=== PATIENT | male | born 1990 | race Caucasian/White ===

== ENCOUNTER 2023-06-30 14:47 | Emergency (ER) | payer OTHER, SELFPAY ==
[2023-06-30 14:51] VITALS: BP 124/77; PULSE 66; RESP 16; TEMP 36.9; O2SAT 100; BMI 32.5
[2023-06-30 15:46] LABS: Add Manual Diff / Slide Review NO; Basophils Absolute Auto 0 /uL (0-100); Basophils Percent Auto 0.6 % (0-2); Eosinophils Absolute Auto 100 /uL (0-450); Eosinophils Percent Auto 1.4 % (2-4); Hematocrit 39.9 % (41-53); Hemoglobin 13.6 g/dL (13.5-17.5); Lymphocytes Absolute Auto 2000 /uL (1100-4500); Lymphocytes Percent Auto 29.6 % (25-40); Mean Corpuscular HGB Conc 34.1 % (30-36); Mean Corpuscular Hemoglobin 30.9 PG (26-34); Mean Corpuscular Volume 90.5 fL (80-100); Monocytes Absolute Auto 700 /uL (0-900); Monocytes Percent Auto 11.2 % (3-14); Neutrophils Absolute Auto 3800 /uL (1500-7000); Neutrophils Percent Auto 57.2 % (50-75); Platelet Count 306 X10^3/uL (150-400); Red Blood Cell Count 4.41 X10^6/uL (4.5-5.9); Red Cell Distribution Width 12.7 % (11.6-14.8); White Blood Cell Count 6.6 X10^3/uL (4.5-11.0)
[2023-06-30 15:52] LABS: Alanine Aminotransferase 22 IU/L (<50); Albumin 4.5 g/dL (3.5-5.0); Albumin Globulin Ratio 1.4 (1.0-2.8); Alkaline Phosphatase 81 U/L (38-126); Aspartate Aminotransferase 32 IU/L (17-59); BUN Creatinine Ratio 13.8 (6-22); Bilirubin Total 0.7 mg/dL (0.2-1.3); Blood Urea Nitrogen 11 mg/dL (9-20); Calcium 8.9 mg/dL (8.4-10.2); Carbon Dioxide 25 mmol/L (22-32); Chloride 106 mmol/L (98-107); Estimated Glomerular Filt Rate > 60 mL/min (>60); Globulin 3.3 g/dL (1.7-4.1); Glucose 94 mg/dL (70-100); HEMOLYSIS 26 (0-50); Lipase 55 U/L (23-300); Sodium 140 mmol/L (137-145); Total Protein 7.8 g/dL (6.3-8.2)
--- NOTE | 2023-06-30 16:42 | ED.ABDPAIN ---
HPI - Abdominal Pain <Edwina Grover PA-C - Last Filed: 06/30/23 19:37> General Chief Complaint: Abdominal Pain Stated Complaint: NVD, Bloody stool Time Seen by Provider: 06/30/23 16:41 Source: patient Mode of arrival: Ambulatory History of Present Illness HPI narrative: 33-year-old male presents with multiple concerns. Patient states he has been dealing with watery stools multiple times a day since Tuesday. On Tuesday night he had blood on his stool that was bright red. This resolved but Tuesday morning he said he was having vomiting and diarrhea at the same time. All day Tuesday he had dry heaving and vomiting and continued to have some watery stools. He says as of yesterday he started to get gradually better but was still not feeling great and then today when he went into work they told him to get seen at the clinic, he went to the clinic on [facility] and they told him he should come to the ER to get evaluated for appendicitis as he has been having some right low abdominal pain throughout this window. Patient did state he was concerned he may have done something to himself at work on last week he had a tool attached to his belt at work and was leaning forward and it was pressing into his belly for about 15 minutes he noticed he had a little bit of a bruise over his abdomen at this location. He does not remember eating anything suspect before his symptoms started on Tuesday. He states that he has had hemorrhoids in the past with blood in his stool but it has been some time. In the past this was painful but he was not having pain on Tuesday. He denies dizziness lightheadedness persistent vomiting, is still having loose watery stools today but not since this morning. Denies cough congestion fevers chills or other. Related Data Home Medications Medication Instructions Recorded Confirmed fluoxetine 20 mg capsule (Prozac) 20 mg PO DAILY 06/30/23 06/30/23 Allergies Allergy/AdvReac Type Severity Reaction Status Date / Time pollen Allergy Mild Uncoded 06/30/23 09:16 cats AdvReac Uncoded 06/30/23 09:16 Review of Systems <Edwina Grover PA-C - Last Filed: 06/30/23 19:37> Review of Systems Narrative: See HPI Patient History <Edwina Grover PA-C - Last Filed: 06/30/23 19:37> Social History Smoking Status: Former smoker Smoking Status: Former smoker Substance Use Type: marijuana Exam <Edwina Grover PA-C - Last Filed: 06/30/23 19:37> Narrative Exam Narrative: GENERAL: 33 year old patient appears stated age. Well-developed patient, in mild distress. HEAD: Atraumatic. Normocephalic. EYES: Pupils equal round and reactive. Extraocular motions intact. No scleral icterus. No injection or drainage. ENT: Nose without bleeding, purulent drainage. Throat without erythema, tonsillar hypertrophy or exudate. Airway patent. NECK: Trachea midline. Non tender CARDIOVASCULAR: Regular rate and rhythm without murmurs, gallops, or rubs. RESPIRATORY: Clear to auscultation. Breath sounds equal bilaterally. No wheezes, rales, or rhonchi. GASTROINTESTINAL: Abdomen soft, there is suprapubic tenderness left lower quadrant tenderness and right lower quadrant tenderness over McBurney's point. Abdomen is otherwise Non-tender, nondistended. EXTREMITIES: No edema or joint tenderness. BACK: Nontender without deformity or crepitance. No flank tenderness. NEURO: AOx3. SKIN: No rash or erythema of visible areas Initial Vital Signs Initial Vital Signs: Vital Signs Temperature 98.4 F 06/30/23 14:51 Pulse Rate 66 06/30/23 14:51 Respiratory Rate 16 06/30/23 14:51 Blood Pressure 124/77 06/30/23 14:51 Pulse Oximetry 100 06/30/23 14:51 Oxygen Delivery Method Room Air 06/30/23 14:51 <Nicky Ayala DO - Last Filed: 07/01/23 07:21> Initial Vital Signs Initial Vital Signs: Vital Signs Temperature 98.4 F 06/30/23 14:51 Pulse Rate 66 06/30/23 14:51 Respiratory Rate 16 06/30/23 14:51 Blood Pressure 124/77 06/30/23 14:51 Pulse Oximetry 100 06/30/23 14:51 Oxygen Delivery Method Room Air 06/30/23 14:51 Course <Edwina Grover PA-C - Last Filed: 06/30/23 19:37> Orders Ordered: Discontinued Medications Ondansetron HCl (Ondansetron 4 Mg Odt) 4 mg PO NOW PRN PRN Reason: Nausea And Vomiting Ondansetron HCl (Ondansetron 4 Mg/2 Ml Inj) 4 mg IV NOW PRN PRN Reason: Nausea And Vomiting Vital Signs Vital signs: Vital Signs - 8 hr 06/30/23 14:51 06/30/23 18:05 Temperature 98.4 F Pulse Rate 66 65 Respiratory Rate 16 18 Blood Pressure 124/77 129/67 Pulse Oximetry 100 100 Oxygen Delivery Method Room Air Room Air <Nicky Ayala DO - Last Filed: 07/01/23 07:21> Orders Ordered: Discontinued Medications Ondansetron HCl (Ondansetron 4 Mg Odt) 4 mg PO NOW PRN PRN Reason: Nausea And Vomiting Ondansetron HCl (Ondansetron 4 Mg/2 Ml Inj) 4 mg IV NOW PRN PRN Reason: Nausea And Vomiting Vital Signs Vital signs: Vital Signs - 8 hr 06/30/23 14:51 06/30/23 18:05 Temperature 98.4 F Pulse Rate 66 65 Respiratory Rate 16 18 Blood Pressure 124/77 129/67 Pulse Oximetry 100 100 Oxygen Delivery Method Room Air Room Air MDM - Abdominal Pain <Edwina Grover PA-C - Last Filed: 06/30/23 19:37> Differential Diagnosis Differential diagnosis: Likely abdominal pain, acute appendicitis, diverticulitis, gastroenteritis, small bowel obstruction and other (Viral gastroenteritis) Medical Records Attestation: I reviewed the patient's medical records. Lab Data Attestation: I reviewed the patient's lab results. 06/30/23 15:29 06/30/23 15:29 Labs: Lab Results 06/30/23 Range/Units 15:29 WBC 6.6 (4.5-11.0) X10^3/uL RBC 4.41 L (4.5-5.9) X10^6/uL Hgb 13.6 (13.5-17.5) g/dL Hct 39.9 L (41-53) % MCV 90.5 (80-100) fL MCH 30.9 (26-34) PG MCHC 34.1 (30-36) % RDW 12.7 (11.6-14.8) % Plt Count 306 (150-400) X10^3/uL Neut % (Auto) 57.2 (50-75) % Lymph % (Auto) 29.6 (25-40) % [place] % (Auto) 11.2 (3-14) % Eos % (Auto) 1.4 L (2-4) % Baso % (Auto) 0.6 (0-2) % Neut # (Auto) 3800 (1165-9771) /uL Lymph # (Auto) 2000 (0656-9976) /uL [place] # (Auto) 700 (0-900) /uL Eos # (Auto) 100 (0-450) /uL Baso # (Auto) 0 (0-100) /uL Sodium 140 (137-145) mmol/L Potassium 4.0 (3.4-5.1) mmol/L Chloride 106 (98-107) mmol/L Carbon Dioxide 25 (22-32) mmol/L BUN 11 (9-20) mg/dL Creatinine 0.80 (0.66-1.25) mg/dL Estimated GFR > 60 (>60) mL/min BUN/Creatinine Ratio 13.8 (6-22) Glucose 94 (70-100) mg/dL Calcium 8.9 (8.4-10.2) mg/dL Total Bilirubin 0.7 (0.2-1.3) mg/dL AST 32 (17-59) IU/L ALT 22 (<50) IU/L Alkaline Phosphatase 81 (38-126) U/L Total Protein 7.8 (6.3-8.2) g/dL Albumin 4.5 (3.5-5.0) g/dL Globulin 3.3 (1.7-4.1) g/dL Albumin/Globulin Ratio 1.4 (1.0-2.8) Lipase 55 (23-300) U/L Point of care testing: Urine Dip Bedside Urine Glucose Negative Bedside Urine Bilirubin - Negative Bedside Urine Ketone +/- 5 Urine Specific Reading 1.015 Bedside Urine Occult Blood - Negative Bedside Urine pH 6.0 Bedside Urine Protein - Negative Bedside Urine Urobilinogen - Negative Bedside Urine Nitrite - Negative Bedside Urine Leukocytes - Negative Esterase Imaging Data CT scan - abdomen/pelvis: My Impression: Agree with Radiology interpretation Radiologist's Impression: [address] [address] [address] Scan Report Signed Patient: Chris Sanders MR#: [id number] : 1990 Acct:[id number] Age/Sex: 33 / M Date of Service: 06/30/23 Loc: ED Accession Number: [id number] Procedure: CT abdomen pelvis w con Ordering Provider: Edwina Grover P.A-C PROCEDURE: CT ABDOMEN PELVIS W CON INDICATIONS: Eval for appendicitis vs diverticulitis TECHNIQUE: After the administration of intravenous contrast, axial sections acquired from the lung bases to the pubic symphysis. Coronal and sagittal reformats were performed. For radiation dose reduction, the following was used: automated exposure control, adjustment of mA and/or kV according to patient size. COMPARISON: None. FINDINGS: Image quality: Diagnostic. Lower Chest: No significant findings. ABDOMEN: Liver: No solid mass. Gallbladder: No radiopaque gallstones or wall thickening. Biliary ducts: No biliary dilation. Pancreas: No ductal dilation. Spleen: Size is within normal limits. Adrenal Glands: No adrenal nodules. Kidneys and Ureters: No hydronephrosis. No solid mass. No complex renal cystic lesion which requires follow up. Stomach and Bowel: There is no bowel obstruction. No gastric or small bowel wall thickening. Appendix is visualized in right lower quadrant and is normal in size and appearance. There is suggestion of diffuse colonic wall thickening and edema with very mild pericolonic fat stranding. No significant sigmoid diverticulosis or CT evidence of acute diverticulitis. No abscess collection. Peritoneum: No abnormal intraperitoneal fluid. No free air. Ventral Wall: No significant ventral hernia. Abdominal Nodes: No retroperitoneal or mesenteric adenopathy by size criteria. Vessels: Aorta and inferior vena cava are normal in size. PELVIS: Pelvic Organs: Unremarkable. Bladder: No bladder wall thickening, accounting for underdistention. Pelvic Nodes: No enlarged lymph nodes. Miscellaneous: No inguinal hernias are seen. Bones: No aggressive osseous abnormality. IMPRESSION: 1. Diffuse colonic wall thickening concerning for infectious or inflammatory colitis. 2. No significant sigmoid diverticulosis or CT evidence of acute diverticulitis. Normal appendix. No bowel obstruction. No free fluid or free air. Dictated by: Dinh Barone M.D. on 06/30/2023 at 17:16 Approved by: Dinh Barone M.D. on 06/30/2023 at 17:19 [facility] Narrative Medical decision making narrative: 33-year-old male presents with concern for multiple days of loose watery stools with vomiting and dry heaving and also with report of blood on his stool on Tuesday night. Patient is fairly well-appearing today and states he thinks he is on the mend but was sent in by clinic for further evaluation from [facility]. Given patient has been having some right lower quadrant abdominal pain and does have some tenderness there today on exam in the setting of recent frequent nausea vomiting and diarrhea do obtain a CT scan for further evaluation. This returns consistent with inflammatory versus infectious colitis. I suspect patient likely has had a viral illness causing his symptoms. His labs are otherwise unremarkable with no evidence of UTI, no leukocytosis, liver enzymes unremarkable and lipase also unremarkable. Discussed results with the patient, he did receive fluids today and felt improved with this treatment. He did not require pain medicine during his ER stay. Considered antibiotics however patient's symptoms have been improving in the last 24 hours and only 4 days of symptoms total do not feel that this is likely a bacterial associated diarrhea. Counseled the patient if he has persistent loose stools and watery stools for the next few days up to 7-10 days or difficulty hydrating or fevers develop he should seek re-evaluation as he may need antibiotics. Return precautions provided, follow-up plan discussed, all questions answered. Encouraged close outpatient follow-up. <Nicky Ayala, - Last Filed: 07/01/23 07:21> Lab Data Labs: Lab Results 06/30/23 Range/Units 15:29 WBC 6.6 (4.5-11.0) X10^3/uL RBC 4.41 L (4.5-5.9) X10^6/uL Hgb 13.6 (13.5-17.5) g/dL Hct 39.9 L (41-53) % MCV 90.5 (80-100) fL MCH 30.9 (26-34) PG MCHC 34.1 (30-36) % RDW 12.7 (11.6-14.8) % Plt Count 306 (150-400) X10^3/uL Neut % (Auto) 57.2 (50-75) % Lymph % (Auto) 29.6 (25-40) % [place] % (Auto) 11.2 (3-14) % Eos % (Auto) 1.4 L (2-4) % Baso % (Auto) 0.6 (0-2) % Neut # (Auto) 3800 (9486-2126) /uL Lymph # (Auto) 2000 (5383-2880) /uL [place] # (Auto) 700 (0-900) /uL Eos # (Auto) 100 (0-450) /uL Baso # (Auto) 0 (0-100) /uL Sodium 140 (137-145) mmol/L Potassium 4.0 (3.4-5.1) mmol/L Chloride 106 (98-107) mmol/L Carbon Dioxide 25 (22-32) mmol/L BUN 11 (9-20) mg/dL Creatinine 0.80 (0.66-1.25) mg/dL Estimated GFR > 60 (>60) mL/min BUN/Creatinine Ratio 13.8 (6-22) Glucose 94 (70-100) mg/dL Calcium 8.9 (8.4-10.2) mg/dL Total Bilirubin 0.7 (0.2-1.3) mg/dL AST 32 (17-59) IU/L ALT 22 (<50) IU/L Alkaline Phosphatase 81 (38-126) U/L Total Protein 7.8 (6.3-8.2) g/dL Albumin 4.5 (3.5-5.0) g/dL Globulin 3.3 (1.7-4.1) g/dL Albumin/Globulin Ratio 1.4 (1.0-2.8) Lipase 55 (23-300) U/L Point of care testing: Urine Dip Bedside Urine Glucose Negative Bedside Urine Bilirubin - Negative Bedside Urine Ketone +/- 5 Urine Specific Reading 1.015 Bedside Urine Occult Blood - Negative Bedside Urine pH 6.0 Bedside Urine Protein - Negative Bedside Urine Urobilinogen - Negative Bedside Urine Nitrite - Negative Bedside Urine Leukocytes - Negative Esterase Discharge Plan Departure Patient Disposition: Home Clinical Impression: Gastroenteritis and colitis, viral Activity Restrictions/Additional Instructions: *You have been diagnosed with [gastroenteritis/colitis] *What to do: *Please continue to take your regular medications as directed. [] New medication prescriptions sent to your pharmacy: [] [ ] New medication written as a paper prescription [ X] No new medications given *Please follow up with your primary care provider in 2-3 days, call for an appointment. Let them know you were seen in the Emergency Department and that we ask that you be seen in follow up. We will electronically transmit a record of today's note if your PCP is in our system. You came in today with concern for a lot of episodes of diarrhea and loose stools over the past few days since Tuesday with some abdominal pain and blood in your stools earlier this week. Your labs today look very good, he did not have evidence of blood loss, your liver labs also looked fine as well as your pancreas labs. We did do a CT scan given your recent symptoms and your tenderness on abdominal exam, which shows inflammation consistent with enteritis colitis. Your appendix looks fine. I suspect this is likely viral, you seem to be improving since her symptoms began and doing better today, I would encourage you to continue with fluids, Pedialyte, electrolyte hydration drinks, bananas rice applesauce and toast as tolerated. I suspect that the blood in your stool was likely due to hemorrhoids which you have had in the past. If you have recurrent blood in your stool or high fevers or worsening abdominal pain or other symptoms I encourage you to seek re-evaluation. *If you do not have a primary care provider please contact the [facility] Resource line at [phone]. They will ask some questions about your medical history and help get you set up with a doctor in the community. *Return to Emergency Department if you should have any new, worsening or concerning symptoms, such as [fever greater than 101 F, shaking chills, worsening pain, persistent vomiting or other bothersome symptoms] Prescriptions: No Action fluoxetine [Prozac] 20 mg capsule 20 mg PO DAILY Referrals: Summer Haider PA-C [Primary Care Provider] - Stand Alone Forms: Patient Portal/API ED Sign-out <Nicky Ayala DO - Last Filed: 07/01/23 07:21> Cosign ED Attending [place] Attestation: I was available for consultation.
--- NOTE | 2023-06-30 18:04 | PC.NURSE ---
assessed by provider prior to the RN being able to get into room.
[2023-06-30 18:05] VITALS: BP 129/67; PULSE 65; RESP 18; O2SAT 100
== END 2023-06-30 18:06 | disposition home or self-care (01) ==
PROVIDERS: Emergency Medicine; Emergency Provider Student in an Organized Health Care Education/Training Program; PCP Physician Assistant Medical
DX: A08.4 Viral intestinal infection, unspecified (principal)
CPT/HCPCS: 74177; 80053; 81003; 83690; 85025; 99281; 99284

== ENCOUNTER → 2023-09-30 14:17 | Outpatient (CLI) | payer OTHER, SELFPAY ==
--- NOTE | 2023-09-30 14:19 | DI.MRI.S_ITS ---
PROCEDURE: MR HAND RT WO CON INDICATIONS: crush injury to R 3rd finger TECHNIQUE: Noncontrast coronal T1 spin echo and T2 fast spin echo with fat saturation, axial proton density fast spin echo and T2 fast spin echo with fat saturation, sagittal T1 spin echo and STIR through the hand and fingers. COMPARISON: [facility] ([place]), CR, XR HAND RT MIN 3V, 08/30/2023, 11:06. FINDINGS: Image quality: Excellent Bones: Nondisplaced fracture of the 3rd distal phalangeal tuft, with associated marrow edema, acute. Interphalangeal joint(s): The accessory and proper collateral ligaments appear intact. The volar plate demonstrates normal morphology. The extensor central slips appear intact on sagittal images. Metacarpophalangeal joint(s): The accessory and proper collateral ligaments appear intact, as well as the volar plate and adjacent deep transverse metacarpal ligaments. The sagittal bands of the extensor vasquez appear normal. Extensor apparatus: Mild tenosynovitis of the 2nd extensor tendon compartment at the level of the distal radius. Flexor apparatus: The flexor digitorum superficialis and profundus tendons both appear intact. All annular and cruciform pulleys appear intact, without adjacent soft tissue edema. Soft tissues: Visualized muscles demonstrate normal bulk and internal signal. No intramuscular masses identified. No ganglion cysts. IMPRESSION: 1. Nondisplaced fracture of the 3rd distal phalangeal tuft, acute. 2. Mild tenosynovitis of the 2nd extensor tendon compartment at the level of the distal radius. Dictated by: Griselda Bullock M.D. on 09/30/2023 at 16:01 Approved by: Griselda Bullock M.D. on 09/30/2023 at 16:06
== END ==
PROVIDERS: PCP Family Medicine; Referring Provider Family Medicine; Visit Provider Family Medicine
DX: S62.662A Nondisplaced fracture of distal phalanx of right middle finger, initial encounter for closed fracture (principal); S67.192A Crushing injury of right middle finger, initial encounter; M65.841 Other synovitis and tenosynovitis, right hand; X58.XXXA Exposure to other specified factors, initial encounter
CPT/HCPCS: 73218